=== PATIENT | male | born 1945 | race Caucasian/White ===

== ENCOUNTER → 2018-08-15 | Outpatient (CLI) | payer MEDICARE, OTHER | LOC: M.CT 10:34 | DX: K40.31 Unilateral inguinal hernia, with obstruction, without gangrene, recurrent (principal); N28.1 Cyst of kidney, acquired; D73.89 Other diseases of spleen; I70.0 Atherosclerosis of aorta; I87.8 Other specified disorders of veins; M47.816 Spondylosis without myelopathy or radiculopathy, lumbar region; Z90.49 Acquired absence of other specified parts of digestive tract ==

== ENCOUNTER → 2019-01-14 | Day surgery (SDC) | payer MEDICARE, OTHER ==
[~2019-01-14] MED LIST: DUREZOL5 ML TOP; LISINOPRIL10 MG PO; NORCO 5-325 TA1 EAC1 PO
[2019-01-14 08:39] LABS: CALCIUM 9.8 mg/dL (8.5-10.1); CREATININE 0.9 mg/dL (0.6-1.3); POTASSIUM 4.2 mmol/L (3.5-5.1)
[2019-01-14 08:41] LABS: HEMATOCRIT 43.4 % (42.0-52.0); HEMOGLOBIN 14.4 gm/dL (14.0-18.0); MCH 30.6 pg (26.0-34.0); MCHC 33.1 g/dL (28.0-37.0); MCV 92.5 fL (80.0-100.0); MPV 8.2 fl. (7.2-11.1); RBC 4.69 mil/uL (4.50-6.00); RDW-CV 14.2 % (10.5-14.5); WBC 4.3 thou/uL (4.0-11.0)
[2019-01-14 08:44] LABS: ALBUMIN 3.8 g/dL (3.4-5.0); TOTAL BILIRUBIN 0.6 mg/dL (<0.1-1.0); TOTAL PROTEIN 7.3 g/dL (6.4-8.2)
--- NOTE | 2019-01-14 17:04 | EKG ---
[place] [address] ELECTROCARDIOGRAM REPORT Name: MOUSTAPHA ONEAL Room: [facility].#: [id number] Admission: 01/14/19 Attend Phys: Parmjit Nguyen DO Discharge: Date of : 47 Report #: [id number] THIS REPORT FOR: //name// [facility] Test Date: 2019-01-14 Test Time: 08:31:39 Pat Name: MOUSTAPHA ONEAL Department: Room: Gender: M Vat Operator: JONATHAN : 1945 Requested By: Robert Reagan Order Number: [id number] Reading MD: Shad Abbasi Measurements Intervals [place] Rate: 67 P: -22 [place]: 206 QRS: -23 QRSD: 107 T: 23 QT: 385 QTc: 407 Interpretive Statements Sinus rhythm Borderline left axis deviation No previous ECG available for comparison Electronically Signed On 01-14-2019 17:04:45 CDT by Shad Abbasi [email or web address] <ELECTRONICALLY SIGNED> By: Shad Abbasi MD, [facility] 01/14/19 1704 0831 0831 Shad Abbasi MD, FACC /EPI
--- NOTE | 2019-01-16 14:06 | PATH ---
[facility] [address] [place] [address] PATHOLOGY RPT PROCEDURE Name: MOUSTAPHA ONEAL Room: [facility].R.#: [id number] Admission: 01/14/19 Date of : 47 Discharge: Report #: [id number] Path Case #: [id number] [facility] Accession Number: [id number] . 01 Material submitted: . inguinal area - RIGHT CORD LIPOMA. Modifiers: right . 01 Clinical history: . Bilateral inguinal hernia, cord lipoma right . 02 Diagnosis: Soft tissue, "cord lipoma right", removal: - Lipoma. (SKM/db; 01/16/2019) LBQ/01/16/2019 . 02 Electronically signed: . Adrien Martins MD, Pathologist NPI- [id number] . 01 Gross description: . The specimen is received in formalin, labeled "Moustapha Oneal, cord lipoma right", are several irregular fragment of yellow lobulated adipose tissue partially covered thin sanchez-hemorrhagic fragment measuring 6.5 x 6.0 x 1.0 cm in aggregate. No discrete nodules or masses identified. Representatively submitted in A1. (SWS; 01/14/2019) SHS/SHS . 02 Pathologist provided ICD-10: D17.6 . 02 CPT . 729124 Specimen Comment: A courtesy copy of this report has been sent to Specimen Comment: [phone], . Specimen Comment: Report sent to / DR GORDON Performed at: [address], [place], [place] [id number] MD Dima Marie MD Phone: [phone] Performed at: 02 [facility] [address], [place], [place] [id number] MD Yossi Vogel MD Phone: [phone]
--- NOTE | 2019-01-22 08:54 | OP ---
[address] [address] OPERATIVE REPORT Name: MOUSTAPHA ONEAL Room: [facility]..#: [id number] Admission: 01/14/19 Attend Phys: Parmjit Nguyen DO Discharge: Date of : 47 Report #: [id number] THIS REPORT FOR: //name// CC: Parmjit Carreon MD DICTATED BY: Jose Juan Cash DO DATE OF SERVICE: 01/14/2019 PRIMARY CARE PHYSICIAN: Javy Carreon MD PREOPERATIVE DIAGNOSIS: Recurrent right inguinal hernia. POSTOPERATIVE DIAGNOSIS: Recurrent right inguinal hernia and left inguinal hernia. PRIMARY SURGEON: Parmjit Nguyen DO CO-SURGEON: Jose Juan Cash DO, PGY-3 OPERATION PERFORMED: Laparoscopic robotic-assisted bilateral inguinal hernia repair with mesh. ANESTHESIA TYPE: General and local. ESTIMATED BLOOD LOSS: 20. SPECIMEN REMOVED: Right cord lipoma. COMPLICATIONS: None. FINDINGS: Right recurrent inguinal hernia containing a large loop of sigmoid colon and a left inguinal hernia. IMPLANTS: Right extra-large Bard 3DMax hernia mesh and a left large Bard 3DMax hernia mesh. INDICATIONS FOR PROCEDURE: The patient is a pleasant 73-year-old male, who presented to the office with chief complaint of increasing right groin bulge. The patient had a history of right inguinal hernia repaired many years ago. He had an ultrasound that showed sigmoid colon in the inguinal canal on the right. There was an obvious right inguinal hernia on exam in the office. No palpable left. I recommended robotic-assisted laparoscopic right, possible left inguinal hernia repair with mesh. Full discussion of procedure, alternatives, risks, and [address] [address] OPERATIVE REPORT Name: MOUSTAPHA ONEAL Room: [facility].#: [id number] Admission: 01/14/19 Attend Phys: Parmjit Nguyen DO Discharge: Date of : 47 Report #: [id number] possible complications discussed include but not limited to bleeding, infection, postoperative pain, scarring, recurrence, conversion to open procedure, urinary retention, need for Pérez, and anesthesia risks. The patient voiced understanding of these risks and agreed to proceed with surgery. DESCRIPTION OF PROCEDURE: The patient was again seen and examined in preoperative holding. Fully informed written consent was obtained. Preoperative antibiotics were given, 2 gm of Ancef. The patient was subsequently transported to the operating room suite and placed on the operating table in a supine position. At this time, Anesthesia induced general anesthesia via endotracheal intubation. This was successful. SCDs were placed to bilateral lower extremity calves. Grounding pad was placed to left lateral thigh. All joints and extremities were padded and protected. SCDs were on bilateral lower extremity calves. The patient's arms were tucked. All joints and extremities were padded and protected. The patient was prepped and draped using standard sterile fashion. Time-out was performed prior to onset of procedure. We began by making a vertical incision superior to the umbilicus. Using open Miranda technique, we dissected down through subcutaneous tissue until we reached level of the fascia. Fascia was scored, grasped with bilateral Kochers, elevated, and transected. Once this was performed, Hemostat was used to martinez the peritoneum. Two interrupted ruumgu-zp-saejo 0 Vicryl sutures were placed in the apices of the fascial incision. A robotic 8 mm camera trocar was placed in the abdomen. Abdomen was insufflated first using low flow, then high flow under direct visualization. A 30-degree 8 mm robotic camera was placed into the abdomen. Once the robotic camera was placed in the abdomen, there was noted to be no underlying injury to any underlying structures. We turned our attention to the pelvic region, noted a large bowel containing right inguinal hernia as well as a left inguinal hernia. The patient was placed in Trendelenburg. Robotic camera removed. The robotic cart was brought to the patient's left side and docked at the patient's side. Next, the robotic arms were attached to the trocars. Prior to the robot cart being brought to the patient's side, there was an additional 8 mm trocar placed in the left mid abdomen, as well as a 12 mm trocar placed in the right mid abdomen. Once the robot cart was docked at the patient's side into the trocars, a 30-degree robotic camera was placed in the abdomen, as well as a bipolar forceps in the left trocar and a monopolar scissors into the right. At this time, Dr. Nguyen assumed his seat at the robotic console to begin the dissection, began by reducing the large loop of sigmoid colon that was in the right inguinal hernia. Once this was performed, the ASIS was marked on the right side using electrocautery. A preperitoneal flap was then made from the median umbilical ligament laterally to the ASIS. Dissection was then carried caudally to the superior pubic ramus. Hernia sac and large cord lipoma were then also reduced through the hernia on the right side. Once this was performed, the dissection was carried out in the exact same fashion on the left. Left side ASIS was marked using electrocautery. Median umbilical ligament was transected laterally to the ASIS to make the preperitoneal flap, which [place] [address] OPERATIVE REPORT Name: MOUSTAPHA ONEAL Room: [facility]#: [id number] Admission: 01/14/19 Attend Phys: Parmjit Nguyen DO Discharge: Date of : 47 Report #: [id number] the superior pubic ramus. Hernia sac was excised and reduced. Intraoperative pictures were obtained. Next, a large left Bard 3DMax was placed into the abdomen, as well as a right extra-large Bard 3DMax hernia mesh, #2, 0 Vicryl 9-inch sutures and #2, 2-0 V-Loc sutures. Meshes were placed in the preperitoneal pocket overlying the hernia defects and sutured into place both at the Cristian's ligament, as well as one additional superior interrupted 2-0 Vicryl placed medial and lateral to the epigastric vessels. Once this was obtained, intraoperative pictures were taken. Next, the preperitoneal flap was closed using a running 2-0 Vicryl on both sides. Once this was performed, all needles were removed from the abdomen. Intraoperative pictures were obtained. A 5-mm EndoCatch bag was placed through the right trocar. A cord lipoma was placed in the EndoCatch bag and removed through the right incision. Abdomen was desufflated under direct visualization. The patient was returned back to supine position. Robot cart was undocked and removed from the patient's bedside. PMI closure device was used to close the right-sided trocar fascial defect, as well as peritoneum. Next, umbilical incision fascia was closed with an additional 2 interrupted lldadp-ej-xozpi 0 Vicryl sutures. Layered closure was then performed of the umbilical incision using a 3-0 Vicryl to close the subcutaneous and deep dermal layers. Skin was closed using a running subcuticular 4-0 Monocryl. The remainder of the other 2 incisions were closed using interrupted 4-0 Monocryl. Abdomen was cleansed using wet and dry lap. A 0.5% Marcaine was used for local anesthetic at each trocar site. Sterile dressings were then applied; Mastisol, Steri-Strips, Tegaderms, 4 x 4s, Medipore tape. The patient tolerated the procedure well, was extubated in the OR, transferred to PACU in stable condition after brief recovery from anesthesia. Plan to discharge home and follow up in the office with Dr. Nguyen in 1 week. <ELECTRONICALLY SIGNED> By: Parmjit Nguyen DO 01/22/19 0854 1306 [id number] Nguyen DO /nt
== END | disposition home or self-care (01) ==
LOC: M.SUR 08:03
PROVIDERS: Anesthesiology
DX: K40.91 Unilateral inguinal hernia, without obstruction or gangrene, recurrent (principal); K40.90 Unilateral inguinal hernia, without obstruction or gangrene, not specified as recurrent; D17.6 Benign lipomatous neoplasm of spermatic cord; Z79.899 Other long term (current) drug therapy; Z79.891 Long term (current) use of opiate analgesic; Z98.890 Other specified postprocedural states